=== PATIENT | male | born 1935 | race African-American/Black ===

== ENCOUNTER 2020-04-10 16:24 | Emergency (ER) | payer MEDICARE, OTHER ==
--- NOTE | 2020-04-10 17:20 | ER Document Report ---
Entered by NAM CULVER SCRIBE 04/10/20 1648 Acting as scribe for:ATIF SANTOS MD ED GI/ - General Information source: Patient <ATIF SANTOS - Last Filed: 04/10/20 21:04> <ALEKOMARI NGUYEN - Last Filed: 04/11/20 04:26> - General Chief Complaint: Urinary Problem Stated Complaint: BLOOD IN URINE Time Seen by Provider: 04/10/20 16:33 Primary Care Provider: KRYSTIAN SORENSEN [NO LOCAL MD] - Follow up as needed ASHLEY COTTO MD [NO HANNAH KAUFFMAN] - Follow up as needed Notes: This 84 year old male patient presents to the emergency department today with complaints of hematuria for the last six days. Patient states that he had similar symptoms previously in 2008 and he required a blood transfusion then. Patient has had a TURP procedure performed in [place] in the past. Patient states he is now passing clots and has pain with urination. Patient is not on any blood thinning medications. (ATIF SANTOS) - Related Data Allergies/Adverse Reactions: lisinopril Allergy (Verified 04/11/20 01:14) Penicillins Allergy (Verified 04/11/20 01:14) Past Medical History - General Information source: Patient - Social History Smoking Status: Former Smoker - Quit in 1977 Cigarette use (# per day): No Frequency of alcohol use: None Drug Abuse: None Lives with: Family Family History: Reviewed & Not Pertinent - Past Medical History Cardiac Medical History: Reports: Hx Hypertension Past Surgical History: Reports: Other - TURP <ATIF SANTOS - Last Filed: 04/10/20 21:04> Review of Systems - Review of Systems Constitutional: No symptoms reported EENT: No symptoms reported Cardiovascular: No symptoms reported Respiratory: No symptoms reported Gastrointestinal: No symptoms reported Genitourinary: See HPI, Dysuria, Hematuria, Pain Male Genitourinary: No symptoms reported Musculoskeletal: No symptoms reported Skin: No symptoms reported Hematologic/Lymphatic: No symptoms reported Neurological/Psychological: No symptoms reported -: Yes All other systems reviewed and negative <ATIF SANTOS - Last Filed: 04/10/20 21:04> Physical Exam <ATIF SANTOS - Last Filed: 04/10/20 21:04> - Vital signs Vitals: Resp Pulse Ox 27 H 91 L 04/10/20 16:29 04/10/20 16:29 - Notes Notes: Physical Exam: General: Alert, appears well. HEENT: Normocephalic. Atraumatic. PERRL. Extraocular movements intact. Oropharynx clear. Neck: Supple. Non-tender. Respiratory: No respiratory distress. Clear and equal breath sounds bilaterally. Cardiovascular: Regular rate and rhythm. Abdominal: Normal Inspection. Non-tender. No distension. Normal Bowel Sounds. Back: No gross abnormalities. Extremities: Moves all four extremities. Upper extremities: Normal inspection. Normal ROM. Lower extremities: Normal inspection. No edema. Normal ROM. Neurological: Normal cognition. AAOx4. Normal speech. Psychological: Normal affect. Normal Mood. Skin: Warm. Dry. Normal color. (ATIF SANTOS) Course - Laboratory Result Diagrams: 04/10/20 18:05 04/10/20 18:05 - Diagnostic Test Radiology reviewed: Image reviewed, Reports reviewed - Chest x-ray is unremarkable. - EKG Interpretation by Me EKG shows normal: Sinus rhythm, [place], Intervals, QRS Complexes, ST-T Waves Rate: Normal - 83 Rhythm: PVC's - Ventricular bigeminy <ATIF SANTOS - Last Filed: 04/10/20 21:04> - Laboratory Result Diagrams: 04/10/20 18:05 04/10/20 18:05 <OMARI GASTON IV - Last Filed: 04/11/20 04:26> - Re-evaluation Re-evalutation: 04/10/20 19:04 When the patient's EKG was done, he was in a bigeminy rhythm. At this time he is in a normal sinus rhythm with a rate of 78. His blood pressure is now 122 systolic, it was recorded at 175 systolic earlier. I am not sure that was an accurate reading at that time. He was able to urinate some dark bloody urine with clots. We will hydrate him with IV fluids and see if he continues to urinate and possibly washout the clots without needing to put an irrigating Ramirez catheter in. 04/10/20 19:43 Clean-catch urinalysis shows TNTC WBCs, TNTC RBCs, with WBC clumps. 04/10/20 21:05 The patient continues to be an abnormal sinus rhythm. He was able to stand up and urinate about 200 mL's of grossly bloody urine with some clots in it about 30 minutes ago. He is receiving additional IV fluids, and is sleeping at this time. (ATIF SANTOS) - Vital Signs Vital signs: Temp Pulse Resp BP Pulse Ox 99.2 F 13 142/56 H 98 04/10/20 16:39 04/11/20 03:08 04/11/20 03:08 04/11/20 03:02 - Laboratory Laboratory results interpreted by me: 04/10/20 04/10/20 04/10/20 17:00 18:05 18:05 RBC 3.60 L Hgb 11.4 L Hct 33.9 L RDW 14.5 H Chloride 109 H Anion Gap 4 L Creatinine 1.38 H Est GFR ( Amer) 59 L Est GFR (MDRD) Non-Af 49 L Creatine Kinase 287 H Albumin 3.3 L Urine Protein 100 H Urine Ketones 20 H Urine Blood MODERATE H Urine Ascorbic Acid 40 H Discharge <ATIF SANTOS - Last Filed: 04/10/20 21:04> <OMARI GASTON IV - Last Filed: 04/11/20 04:26> - Discharge Clinical Impression: Urinary tract infection Qualifiers: Urinary tract infection type: acute cystitis Hematuria presence: with hematuria Qualified Code(s): N30.01 - Acute cystitis with hematuria Hematuria Qualifiers: Hematuria type: gross Qualified Code(s): R31.0 - Gross hematuria Condition: Stable Disposition: HOME, SELF-CARE Additional Instructions: Urinary Tract Infection: Your evaluation indicates that you have a urinary tract infection. This is due to germs growing in the bladder. This is a common problem. This infection usually responds quickly to antibiotics. Your antibiotic should be taken exactly as prescribed. Drink plenty of fluids -- three to four quarts a day. Occasionally, a bladder anesthetic will be prescribed to help stop the feeling of urgency until the antibiotic has a chance to clear the infection. This may cause your urine to be dark orange. Certain urine infections require a culture. If the doctor obtained a culture, the results will be back in two days. You should call to see if a change in treatment is needed. A repeat urinalysis after you finish treatment is often recommended. The physician will let you know if further testing is required. Call the doctor if you develop fever, chills, flank pain, inability to urinate, or blood in the urine. Hematuria: Hematuria, or blood in your urine, can be caused by minor medical problems, such as a bladder infection, or by more serious medical conditions, such as kidney stones or even tumors of the bladder or kidney. If the cause of the hematuria is known (such as a bladder infection) and can be treated, it may not need further evaluation. If the cause is not known, it will usually require further evaluation by a specialist, such as a urologist. In particular, unexplained hematuria in the older patient must be evaluated to rule out a serious condition, such as a bladder or kidney tumor. If the hematuria worsens or you are passing clots and then are unable to urinate, you should be re-evaluated. A catheter may need to be placed in the bladder to permit passage of urine. If you develop high fever, severe pain, or other new or worsening symptoms, return to the Emergency Department for re-evaluation. Take the medications as prescribed. Drink plenty of fluids over the next few days. Get up to empty your bladder frequently. When you are in bed, try to roll from side to side frequently to prevent the blood from clotting in your bladder. The first EKG that was done showed a heart rhythm called ventricular bigeminy. That did not last very long and you went back into a normal sinus rhythm. Take copies of that EKG and your lab work to follow-up with your doctor on Monday for recheck. If you cannot be seen at the [facility], then follow-up with your urologist. Return to the emergency room if you find you are unable to empty your bladder. RETURN TO THE EMERGENCY ROOM IF ANY NEW OR WORSENING SYMPTOMS. Prescriptions: Ciprofloxacin HCl [Cipro 500 mg Tablet] 500 mg PO BID #10 tablet Referrals: KRYSTIAN SORENSEN [NO LOCAL MD] - Follow up as needed ASHLEY COTTO MD [NO LOCAL MD] - Follow up as needed I personally performed the services described in the documentation, reviewed and edited the documentation which was dictated to the scribe in my presence, and it accurately records my words and actions.
[2020-04-10 18:26] LABS: ABSOLUTE EOSINOPHILS # (AUTO) 0.3 10^3/uL (0.0-0.6); ABSOLUTE LYMPHOCYTES (AUTO) 1.8 10^3/uL (0.5-4.7); ABSOLUTE MONOCYTES (AUTO) 0.9 10^3/uL (0.1-1.4); ABSOLUTE NEUT (AUTO) 6.4 10^3/uL (1.7-8.2); BASOPHILS % (AUTO) 0.4 % (0-2); EOSINOPHILS % (AUTO) 2.9 % (0-6); HEMATOCRIT 33.9 % (37.9-51.0); HEMOGLOBIN 11.4 g/dL (13.5-17.0); LYMPHOCYTES % (AUTO) 19.1 % (13-45); MEAN CORPUSCULAR HEMOGLOBIN 31.6 pg (27.0-33.4); MEAN CORPUSCULAR HGB CONC 33.5 g/dL (32.0-36.0); MEAN CORPUSCULAR VOLUME 94 fl (80-97); MONOCYTES % (AUTO) 9.8 % (3-13); PLATELET COUNT 292 10^3/uL (150-450); RED CELL DISTRIBUTION WIDTH 14.5 % (11.5-14.0); SEGMENTED NEUTROPHILS % (AUTO) 67.8 % (42-78); TOTAL CELLS COUNTED % (AUTO) 100 %; WHITE BLOOD COUNT 9.4 10^3/uL (4.0-10.5)
[2020-04-10 18:46] LABS: ALBUMIN 3.3 g/dL (3.5-5.0); ALKALINE PHOSPHATASE 62 U/L (38-126); ASPARTATE AMINO TRANSFERASE 22 U/L (17-59); BILIRUBIN,TOTAL 0.4 mg/dL (0.2-1.3); BLOOD UREA NITROGEN 18 mg/dL (7-20); CALCIUM 9.1 mg/dL (8.4-10.2); CARBON DIOXIDE 26 mmol/L (22-30); CHLORIDE 109 mmol/L (98-107); CREATINE KINASE 287 U/L (55-170); GLUCOSE 105 mg/dL (75-110); POTASSIUM 3.8 mmol/L (3.6-5.0); TOTAL PROTEIN 6.5 g/dL (6.3-8.2)
[2020-04-10] MEDS ORDERED: NORMAL SALINE 1000 ML 1,000 ML IV ONE (18:46)
[2020-04-10 18:51] LABS: ANION GAP 4 (5-19)
[2020-04-10 18:53] LABS: INTERNATIONAL RATION (INR) 1.01; PROTHROMBIN TIME 13.3 SEC (11.4-15.4)
--- NOTE | 2020-04-10 19:23 | RADIOLOGY REPORT (SQ) ---
EXAM DESCRIPTION: CHEST SINGLE VIEW IMAGES COMPLETED DATE/TIME: 04/10/2020 6:07 pm REASON FOR STUDY: Hematuria, ventricular bigeminy, fatigue. COMPARISON: None. EXAM PARAMETERS: NUMBER OF VIEWS: One view. TECHNIQUE: Single frontal radiographic view of the chest acquired. RADIATION DOSE: NA LIMITATIONS: None. FINDINGS: LUNGS AND PLEURA: No opacities, masses or pneumothorax. No pleural effusion. MEDIASTINUM AND HILAR STRUCTURES: No masses. Contour normal. HEART AND VASCULAR STRUCTURES: Heart normal in size. Normal vasculature. BONES: No acute findings. HARDWARE: None in the chest. OTHER: No other significant finding. IMPRESSION: NO ACUTE RADIOGRAPHIC FINDING IN THE CHEST. TECHNICAL DOCUMENTATION: JOB ID: [id number] 2010 [employer]- All Rights Reserved Reading location - IP/workstation name: [email or web address]
[2020-04-10 19:26] LABS: BILIRUBIN,URINE NEGATIVE (NEGATIVE); GLUCOSE, URINE NEGATIVE (NEGATIVE); KETONES,URINE 20 mg/dL (NEGATIVE); LEUKOCYTE ESTERASE,URINE NEGATIVE (NEGATIVE); NITRITE,URINE NEGATIVE (NEGATIVE); PROTEIN,URINE 100 mg/dL (NEGATIVE); URINE SPECIFIC GRAVITY 1.023; UROBILINOGEN,URINE NEGATIVE mg/dL (<2.0)
[2020-04-10 19:27] LABS: APPEARANCE,URINE TURBID; COLOR,URINE RED
[2020-04-10] MEDS ORDERED: CEFTRIAXONE 1 GM/D5W RTU 1 GM/50 ML RTUPB IV ONE (19:40)
[2020-04-10] MEDS ORDERED: RINGERS SOLUTION,LACTATED 1,000 ML IV ONE ×2 (20:23→20:59)
[2020-04-10] MEDS ORDERED: CIPROFLOXACIN HCL 500 MG TABLET PO ONE (20:59)
[2020-04-11] MEDS ORDERED: VERAPAMIL HCL 240 MG TABLET.SA PO ONE ×2 (00:12→00:26)
[2020-04-11 04:58] VITALS: BP 125/70
--- NOTE | 2020-04-11 10:19 | EKG REPORT ---
SEVERITY:- ABNORMAL ECG - SINUS RHYTHM VENTRICULAR BIGEMINY PROBABLE ANTEROSEPTAL INFARCT, OLD CONSIDER POSTERIOR INFARCT : Confirmed by: Sherry Dodd 11-Apr-2020 10:18:33
== END 2020-04-11 04:59 | disposition home or self-care (01) ==
LOC: ER 16:24
DX: N30.01 Acute cystitis with hematuria (principal); R39.198 Other difficulties with micturition; R30.0 Dysuria; I10 Essential (primary) hypertension; Z88.0 Allergy status to penicillin; Z88.8 Allergy status to other drugs, medicaments and biological substances; Z87.891 Personal history of nicotine dependence
CPT/HCPCS: 93005; 99284; 96361; 51701; 96365; 86900; 86901; 36415; 87086; 86850; 82550; 85025; 85610; 87088; 80053; 81001; 84484; 71045; 93010; A9270 ×2; J7030; J7120; J0696; J3490